=== PATIENT | female | born 1985 | race Caucasian/White ===

== ENCOUNTER 2021-10-22 05:11 | Inpatient (IN) | payer BC ==
[2021-10-22] MEDS ORDERED: Butorphanol 1 MG/ML SDV IVPUSH PRN (05:29)
[2021-10-22] MEDS ORDERED: Methylergonovine 0.2 MG/1 ML Amp IM PRN (05:29)
[2021-10-22] MEDS ORDERED: Sodium Chloride 0.9% 2.5 ML Syringe FLUSH PRN (05:29)
[2021-10-22] MEDS ORDERED: Lidocaine 1% 50 ML MDV INJECT PRN (05:29)
[2021-10-22] MEDS ORDERED: Sodium Chloride 0.9% 20 ML SDV IV PRN (05:29)
[2021-10-22] MEDS ORDERED: Misoprostol 200 MCG Tab PO PRN (05:29)
[2021-10-22] MEDS ORDERED: Citric Acid/Sodium Citrate Solution 30 ML Cup PO ONE (05:29)
[2021-10-22] MEDS ORDERED: Water For Irrigation,Sterile 1,000 ML Container IRR PRN (05:29)
[2021-10-22] MEDS ORDERED: Tranexamic Acid 1,000 MG in Sodium Chloride 0.9% 100 ML IV PRN (05:29)
[2021-10-22] MEDS ORDERED: Carboprost Tromethamine 250 MCG/1 ML Amp IM PRN (05:29)
[2021-10-22] MEDS ORDERED: Sodium Chloride 0.9% 10 ML Syringe FLUSH PRN (05:29)
[2021-10-22] MEDS ORDERED: Nalbuphine 10 MG/1 ML Vial IVPUSH PRN (05:29)
[2021-10-22] MEDS ORDERED: Oxytocin/0.9 % Sodium Chloride 30 UNIT/500 ML BAG IV SCH (05:30)
[2021-10-22] MEDS ORDERED: Lactated Ringers 1,000 ML IV SCH ×2 (05:30→10:00)
[2021-10-22] MEDS ORDERED: ceFAZolin 2 GM in Premix Bag 1 BAG IV ONE (06:00)
[2021-10-22] MEDS: Lactated Ringers 1,000 ML IV SCH ×2 (06:06→07:28)
[2021-10-22] MEDS ORDERED: Glycopyrrolate 0.2 MG/ML SDV ONE (07:17)
[2021-10-22] MEDS ORDERED: ePHEDrine 50 MG/ML SDV ONE (07:17)
[2021-10-22] MEDS ORDERED: Octyl 2-Cyanoacrylate 1 Tube ONE (07:41)
--- NOTE | 2021-10-22 07:45 | PCM.PREANE ---
Preanesthetic Assessment - Procedure Proposed Procedure: Spinal for C Section - Anesthesia/Transfusion/Family Hx Anesthesia History: Prior Anesthesia Without Reaction Family History of Anesthesia Reaction: Other (see below) (Emergence Delirium) Transfusion History: No Prior Transfusion(s) - Review of Systems General: No Symptoms Pulmonary: No Symptoms, Other (Seasonal Allergies) Cardiovascular: No Symptoms Gastrointestinal: No Symptoms, Other (GERD) Neurological: No Symptoms Other: Reports: None - Physical Assessment NPO Status Date: 10/21/21 NPO Status Time: 00:00 Height: 1.5 m Weight: 68.946 kg ASA Class: 2 Mental Status: Alert & Oriented x3 Airway Class: Mallampati = 2 Dentition: Reports: Normal Dentition Thyro-Mental Finger Breadths: 3 Mouth Opening Finger Breadths: 3 ROM/Head Extension: Full Lungs: Clear to Auscultation, Normal Respiratory Effort Cardiovascular: Regular Rate, Regular Rhythm - Lab Values: Laboratory Last Values WBC 9.62 K/uL (4.0-11.0) 10/22/21 05:58 RBC 3.98 M/uL (4.30-5.90) L 10/22/21 05:58 Hgb 11.2 g/dL (12.0-16.0) L 10/22/21 05:58 Hct 33.9 % (36.0-46.0) L 10/22/21 05:58 MCV 85.2 fL (80.0-98.0) 10/22/21 05:58 MCH 28.1 pg (27.0-32.0) 10/22/21 05:58 MCHC 33.0 g/dL (31.0-37.0) 10/22/21 05:58 RDW Std Deviation 44.6 fl (28.0-62.0) 10/22/21 05:58 RDW Coeff of Moshe 15 % (11.0-15.0) 10/22/21 05:58 Plt Count 311 K/uL (150-400) 10/22/21 05:58 MPV 9.10 fL (7.40-12.00) 10/22/21 05:58 Nucleated RBC % 0.0 /100WBC 10/22/21 05:58 Nucleated RBCs # 0 K/uL 10/22/21 05:58 - Allergies Allergies/Adverse Reactions: Allergies Allergy/AdvReac Type Severity Reaction Status Date / Time droperidol [From Inapsine] Allergy Itching Verified 10/22/21 06:22 - Blood Blood Available: Yes Product(s) Available: PRBC - Anesthesia Plan Pre-Op Medication Ordered: None - Acknowledgements Anesthesia Type Planned: Spinal Pt an Appropriate Candidate for the Planned Anesthesia: Yes Alternatives and Risks of Anesthesia Discussed w Pt/Guardian: Yes Pt/Guardian Understands and Agrees with Anesthesia Plan: Yes PreAnesthesia Questionnaire HEENT History: Reports: Other (See Below) Other HEENT History: wears glasses/contacts Cardiovascular History: Reports: None Respiratory History: Reports: Other (See Below) Other Respiratory History: hx childhood asthma Gastrointestinal History: Reports: Other (See Below) Other Gastrointestinal History: occasional heartburn with Genitourinary History: Reports: None 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: , Spontaneous Musculoskeletal History: Reports: None Neurological History: Reports: Migraines Psychiatric History: Reports: None Endocrine/Metabolic History: Reports: None Hematologic History: Reports: None Immunologic History: Reports: None Oncologic (Cancer) History: Reports: None Dermatologic History: Reports: None - Infectious Disease History Infectious Disease History: Reports: Chicken Pox - Past Surgical History Head Surgeries/Procedures: Reports: None HEENT Surgical History: Reports: Tonsillectomy, Other (See Below) Other HEENT Surgeries/Procedures: lymph node removed from neck Cardiovascular Surgical History: Reports: None Respiratory Surgical History: Reports: None GI Surgical History: Reports: None Female Surgical History: Reports: Section Endocrine Surgical History: Reports: Other (See Below) Other Endocrine Surgeries/Procedures: lymph node removed from neck Neurological Surgical History: Reports: None Musculoskeletal Surgical History: Reports: None Oncologic Surgical History: Reports: None Dermatological Surgical History: Reports: None - SUBSTANCE USE Tobacco Use Status *Q: Never Tobacco User Recreational Drug Use History: No - HOME MEDS Home Medications: Home Meds Ferrous Sulfate [Iron] 65 mg PO DAILY 10/19/21 [History] - CURRENT (IN HOUSE) MEDS Current Meds: Current Medications Butorphanol Tartrate (Butorphanol 1 Mg/Ml Sdv) 1 mg IVPUSH Q1H PRN PRN Reason: Pain (severe 7-10) Carboprost Tromethamine (Carboprost Tromethamine 250 Mcg/1 Ml Amp) 250 mcg IM ASDIRECTED PRN PRN Reason: Post Hemorrhage Oxytocin/Sodium Chloride (Oxytocin 30 Unit In Ns 0.9% 500 Ml Premix) 30 unit in 500 mls @ 999 mls/hr IV TITRATE [facility] Tranexamic Acid 1,000 mg/ (Sodium Chloride) 110 mls @ 660 mls/hr IV ONETIME PRN PRN Reason: Bleeding Lactated Ringer's (Ringers, Lactated) 1,000 mls @ 500 mls/hr IV BOLUS [facility] Last Admin: 10/22/21 07:28 Dose: 500 mls/hr Documented by: Lactated Ringer's (Ringers, Lactated) 1,000 mls @ 150 mls/hr IV ASDIRECTED [facility] Lidocaine HCl (Lidocaine 1% 50 Ml Mdv) 50 ml INJECT ONETIME PRN PRN Reason: Laceration repair Methylergonovine Maleate (Methylergonovine 0.2 Mg/1 Ml Amp) 0.2 mg IM ASDIRECTED PRN PRN Reason: Post Hemorrhage Misoprostol (Misoprostol 200 Mcg Tab) 200 mcg PO ONETIME PRN PRN Reason: Post Hemorrhage Nalbuphine HCl (Nalbuphine 10 Mg/1 Ml Vial) 10 mg IVPUSH Q1H PRN PRN Reason: Pain (severe 7-10) Sodium Chloride (Sodium Chloride 0.9% 10 Ml Syringe) 10 ml FLUSH ASDIRECTED PRN PRN Reason: Keep Vein Open Sodium Chloride (Sodium Chloride 0.9% 2.5 Ml Syringe) 2.5 ml FLUSH ASDIRECTED PRN PRN Reason: Keep Vein Open Sodium Chloride (Sodium Chloride 0.9% 20 Ml Sdv) 10 ml IV ASDIRECTED PRN PRN Reason: IV Use Sterile Water (Water For Irrigation,Sterile 1,000 Ml Container) 1,000 ml IRR ASDIRECTED PRN PRN Reason: delivery Discontinued Medications Citric Acid/Sodium Citrate (Citric Acid/Sodium Citrate Solution 30 Ml Cup) 30 ml PO ONETIME ONE Stop: 10/22/21 05:30 Ephedrine Sulfate (Ephedrine 50 Mg/Ml Sdv) Confirm Administered Dose 50 mg .ROUTE .STK-MED ONE Stop: 10/22/21 07:18 Glycopyrrolate (Glycopyrrolate 0.2 Mg/Ml Sdv) Confirm Administered Dose 0.4 mg .ROUTE .STK-MED ONE Stop: 10/22/21 07:18 Cefazolin Sodium/Dextrose 2 gm (/ Premix) 50 mls @ 100 mls/hr IV ONETIME ONE Stop: 10/22/21 06:29 Acetaminophen (Ofirmev 1000 Mg/100 Ml) Confirm Administered Dose 100 mls @ as d irected .ROUTE .STK-MED ONE Stop: 10/22/21 07:18
[2021-10-22] MEDS ORDERED: Famotidine 20 MG/2 ML SDV IVPUSH ONE (07:51)
[2021-10-22] MEDS ORDERED: Famotidine 20 MG/2 ML SDV ONE (07:53)
[2021-10-22] MEDS ORDERED: Morphine PF 10 MG/10 ML SDV ONE (07:59)
[2021-10-22] MEDS ORDERED: Ibuprofen 800 MG Tab PO PRN (08:10)
[2021-10-22] MEDS ORDERED: Acetaminophen 500 MG Tab PO PRN ×2 (08:10)
[2021-10-22] MEDS ORDERED: Ibuprofen 400 MG Tab PO PRN (08:10)
[2021-10-22] MEDS ORDERED: Benzocaine/Menthol 20%-0.5% Spray 78 GM Cannister TOP PRN (08:10)
[2021-10-22] MEDS ORDERED: Lanolin 100% Cream 7 GM Tube TOP PRN ×2 (08:10→09:55)
[2021-10-22] MEDS ORDERED: Witch Hazel Medicated Pads 40/Jar TOP PRN (08:10)
[2021-10-22] MEDS ORDERED: Bisacodyl 10 MG Supp RECTAL PRN ×2 (08:10→09:55)
[2021-10-22] MEDS ORDERED: oxyCODONE 5 MG Tab PO PRN (08:10)
[2021-10-22] MEDS ORDERED: Docusate Sodium 100 MG Cap PO PRN (08:10)
--- NOTE | 2021-10-22 08:10 | PCM.LDHP ---
L&D History of Present Illness - General Date of Service: 10/22/21 Admit Problem/Dx: Patient Status Order with Admit Dx/Problem 10/22/21 05:30 Patient Status [ADT] Routine Admission Diagnosis/Problem Admission Diagnosis/Problem Source of Information: Patient History Limitations: Reports: No Limitations - History of Present Illness Improves with: Reports: None Worsens with: Reports: None Associated Symptoms: Reports: N - Related Data Allergies/Adverse Reactions: Allergies Allergy/AdvReac Type Severity Reaction Status Date / Time droperidol [From Inapsine] Allergy Itching Verified 10/22/21 06:22 Home Medications: Home Meds Ferrous Sulfate [Iron] 65 mg PO DAILY 10/19/21 [History] Past Medical History HEENT History: Reports: Other (See Below) Other HEENT History: wears glasses/contacts Cardiovascular History: Reports: None Respiratory History: Reports: Other (See Below) Other Respiratory History: hx childhood asthma Gastrointestinal History: Reports: Other (See Below) Other Gastrointestinal History: occasional heartburn with Genitourinary History: Reports: None 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: , Spontaneous Musculoskeletal History: Reports: None Neurological History: Reports: Migraines Psychiatric History: Reports: None Endocrine/Metabolic History: Reports: None Hematologic History: Reports: None Immunologic History: Reports: None Oncologic (Cancer) History: Reports: None Dermatologic History: Reports: None - Infectious Disease History Infectious Disease History: Reports: Chicken Pox - Past Surgical History Head Surgeries/Procedures: Reports: None HEENT Surgical History: Reports: Tonsillectomy, Other (See Below) Other HEENT Surgeries/Procedures: lymph node removed from neck Cardiovascular Surgical History: Reports: None Respiratory Surgical History: Reports: None GI Surgical History: Reports: None Female Surgical History: Reports: Section Endocrine Surgical History: Reports: Other (See Below) Other Endocrine Surgeries/Procedures: lymph node removed from neck Neurological Surgical History: Reports: None Musculoskeletal Surgical History: Reports: None Oncologic Surgical History: Reports: None Dermatological Surgical History: Reports: None Social & Family History - Tobacco Use Tobacco Use Status *Q: Never Tobacco User - Caffeine Use Caffeine Use: Reports: Coffee, Soda Caffeine Use Comment: Occasional - Recreational Drug Use Recreational Drug Use: No Drug Use in Last 12 Months: No H&P Review of Systems - Review of Systems: Review Of Systems: See Below General: Reports: No Symptoms HEENT: Reports: No Symptoms Pulmonary: Reports: No Symptoms Cardiovascular: Reports: No Symptoms Gastrointestinal: Reports: No Symptoms Genitourinary: Reports: No Symptoms Musculoskeletal: Reports: No Symptoms Skin: Reports: No Symptoms Psychiatric: Reports: No Symptoms Neurological: Reports: No Symptoms Hematologic/Lymphatic: Reports: No Symptoms Immunologic: Reports: No Symptoms L&D Exam - Exam Exam: See Below - Vital Signs Weight: 68.946 kg - OB Specific Contraction Intensity: Mild Movement: Active Heart Tones: Present Presentation: Vertex - La Score La Score Cervix Position: Midposition La Score Consistency: Medium La Score Effacement: 31-50% La Score Dilation: Closed La Score Infant's Station: -3 La Score Total: 3 - Exam General: Alert, Oriented HEENT: PERRLA, Conjunctiva Clear, EACs Clear, EOMI, Hearing Intact, Mucosa Moist & [place], Nares Patent, Normal Nasal Septum, Posterior Pharynx Clear, TMs Clear Neck: Supple, Trachea Midline Lungs: Clear to Auscultation, Normal Respiratory Effort Cardiovascular: Regular Rate, Regular Rhythm GI/Abdominal Exam: Normal Bowel Sounds, Soft, Non-Tender, No Organomegaly, No Distention, No Abnormal Bruit, No Mass, Pelvis Stable Rectal Exam: Normal Exam, Normal Rectal Tone Genitourinary: Normal external exam, Normal bimanual exam, Normal speculum exam Back Exam: Normal Inspection, Full Range of Motion Extremities: Normal Inspection, Normal Range of Motion, Non-Tender, No Pedal Edema, Normal Capillary Refill Skin: Warm, Dry, Intact Neurological: Cranial Nerves Intact, Reflexes Equal Bilateral Psychiatric: Alert, Normal Affect, Normal Mood - Patient Data Lab Results Last 24 hrs: Laboratory Results - last 24 hr 10/22/21 Range/Units 05:58 WBC 9.62 (4.0-11.0) K/uL RBC 3.98 L (4.30-5.90) M/uL Hgb 11.2 L (12.0-16.0) g/dL Hct 33.9 L (36.0-46.0) % MCV 85.2 (80.0-98.0) fL MCH 28.1 (27.0-32.0) pg MCHC 33.0 (31.0-37.0) g/dL RDW Std Deviation 44.6 (28.0-62.0) fl RDW Coeff of Moshe 15 (11.0-15.0) % Plt Count 311 (150-400) K/uL MPV 9.10 (7.40-12.00) fL Nucleated RBC % 0.0 /100WBC Nucleated RBCs # 0 K/uL Result Diagrams: 10/22/21 05:58 Problem List Initiated/Reviewed/Updated: Yes Orders Last 24hrs: Active Orders 24 hr Category Date Time Status Patient Status [ADT] Routine ADT 10/22/21 05:30 Active Antiembolic Devices [RC] PER UNIT ROUTINE Care 10/22/21 05:31 Active Insert Urinary Catheter [OM.PC] Routine Care 10/22/21 05:30 Ordered May Shower [RC] ASDIRECTED Care 10/22/21 05:30 Active Notify Provider Vital Signs [RC] PRN Care 10/22/21 05:40 Active Notify Provider [RC] PRN Care 10/22/21 05:30 Active Up ad Gabriela [RC] ASDIRECTED Care 10/22/21 05:30 Active Urinary Catheter Assessment [RC] ASDIRECTED Care 10/22/21 05:31 Active Vital Signs [RC] PER UNIT ROUTINE Care 10/22/21 05:30 Active RPR (SYPHILIS SERO) W/ RFLX [REF] Routine Lab 10/22/21 05:58 Received TYPE AND SCREEN [BBK] Routine Lab 10/22/21 05:58 Received Butorphanol [Stadol] Med 10/22/21 05:29 Active 1 mg IVPUSH Q1H PRN Carboprost Tromethamine [Hemabate DS] Med 10/22/21 05:29 Active 250 mcg IM ASDIRECTED PRN Lactated Ringers [Ringers, Lactated] 1,000 ml Med 10/22/21 05:30 Active IV ASDIRECTED Lactated Ringers [Ringers, Lactated] 1,000 ml Med 10/22/21 05:30 Active IV BOLUS Lidocaine 1% [Xylocaine 1%] Med 10/22/21 05:29 Active 50 ml INJECT ONETIME PRN Methylergonovine [Methergine] Med 10/22/21 05:29 Active 0.2 mg IM ASDIRECTED PRN Nalbuphine [Nubain] Med 10/22/21 05:29 Active 10 mg IVPUSH Q1H PRN Oxytocin/0.9 % Sodium Chloride [Oxytocin 30 Unit in NS Med 10/22/21 05:30 Active 0.9% 500 ML Premix] 30 unit in 500 ml IV TITRATE Sodium Chloride 0.9% [Normal Saline] Med 10/22/21 05:29 Active 10 ml IV ASDIRECTED PRN Sodium Chloride 0.9% [Saline Flush] Med 10/22/21 05:29 Active 10 ml FLUSH ASDIRECTED PRN Sodium Chloride 0.9% [Saline Flush] Med 10/22/21 05:29 Active 2.5 ml FLUSH ASDIRECTED PRN Tranexamic Acid [Cyklokapron] 1,000 mg Med 10/22/21 05:29 Active Sodium Chloride 0.9% [Normal Saline] 100 ml IV ONETIME Water For Irrigation,Sterile [Sterile Water for Med 10/22/21 05:29 Active Irrigation] 1,000 ml IRR ASDIRECTED PRN miSOPROStoL [Cytotec] Med 10/22/21 05:29 Active 200 mcg PO ONETIME PRN Peripheral IV Insertion Adult [OM.PC] Routine Oth 10/22/21 05:30 Ordered Peripheral IV Insertion Adult [OM.PC] Routine Oth 10/22/21 05:30 Ordered Schedule Procedure [COMM] Per Unit Routine Oth 10/22/21 05:30 Ordered Sequential Compression Device [OM.PC] Routine Oth 10/22/21 05:30 Ordered Resuscitation Status Routine Resus Stat 10/22/21 05:29 Ordered Medication Orders Butorphanol Tartrate (Butorphanol 1 Mg/Ml Sdv) 1 mg IVPUSH Q1H PRN PRN Reason: Pain (severe 7-10) Carboprost Tromethamine (Carboprost Tromethamine 250 Mcg/1 Ml Amp) 250 mcg IM ASDIRECTED PRN PRN Reason: Post Hemorrhage Oxytocin/Sodium Chloride (Oxytocin 30 Unit In Ns 0.9% 500 Ml Premix) 30 unit in 500 mls @ 999 mls/hr IV TITRATE [facility] Tranexamic Acid 1,000 mg/ (Sodium Chloride) 110 mls @ 660 mls/hr IV ONETIME PRN PRN Reason: Bleeding Lactated Ringer's (Ringers, Lactated) 1,000 mls @ 500 mls/hr IV BOLUS [facility] Last Admin: 10/22/21 07:28 Dose: 500 mls/hr Documented by: [email or web address] Infusion: 10/22/21 07:28 Dose: 500 mls/hr Documented by: [id number] Admin: 10/22/21 06:06 Dose: 500 mls/hr Documented by: RACHEL Lactated Ringer's (Ringers, Lactated) 1,000 mls @ 150 mls/hr IV ASDIRECTED [facility] Lidocaine HCl (Lidocaine 1% 50 Ml Mdv) 50 ml INJECT ONETIME PRN PRN Reason: Laceration repair Methylergonovine Maleate (Methylergonovine 0.2 Mg/1 Ml Amp) 0.2 mg IM ASDIRECTE D PRN PRN Reason: Post Hemorrhage Misoprostol (Misoprostol 200 Mcg Tab) 200 mcg PO ONETIME PRN PRN Reason: Post Hemorrhage Nalbuphine HCl (Nalbuphine 10 Mg/1 Ml Vial) 10 mg IVPUSH Q1H PRN PRN Reason: Pain (severe 7-10) Sodium Chloride (Sodium Chloride 0.9% 10 Ml Syringe) 10 ml FLUSH ASDIRECTED PRN PRN Reason: Keep Vein Open Sodium Chloride (Sodium Chloride 0.9% 2.5 Ml Syringe) 2.5 ml FLUSH ASDIRECTED PRN PRN Reason: Keep Vein Open Sodium Chloride (Sodium Chloride 0.9% 20 Ml Sdv) 10 ml IV ASDIRECTED PRN PRN Reason: IV Use Sterile Water (Water For Irrigation,Sterile 1,000 Ml Container) 1,000 ml IRR ASDIRECTED PRN PRN Reason: delivery Assessment/Plan Comment:: Termpregnancy admitted for elective repear c/section.
[2021-10-22] MEDS ORDERED: Oxytocin 10 Units/1 ML SDV ONE (08:54)
--- NOTE | 2021-10-22 08:55 | PCM.OPNOTE ---
- General Post-Op/Procedure Note Date of Surgery/Procedure: 10/22/21 Operative Procedure(s): repeat C/section. Pre Op Diagnosis: IUP term previous C/section. Post-Op Diagnosis: Same Anesthesia Technique: Spinal Primary Surgeon: Mohit Simpsno Channel Marketing Manager: rachana Roth EBL in mLs: 600 Complications: None Condition: Good
[2021-10-22] MEDS ORDERED: Ondansetron 4 MG/2 ML SDV ONE (09:24)
[2021-10-22] MEDS ORDERED: Dexamethasone 4 MG/ML 5 ML MDV ONE (09:24)
--- NOTE | 2021-10-22 09:49 | PCM.POSTAN ---
POST ANESTHESIA ASSESSMENT - MENTAL STATUS Mental Status: Alert, Oriented - RESPIRATORY Respiratory Status: Respiratory Rate WNL, Airway Patent, O2 Saturation Stable - CARDIOVASCULAR CV Status: Pulse Rate WNL, Blood Pressure Stable - GASTROINTESTINAL GI Status: No Symptoms - POST OP HYDRATION Hydration Status: Adequate & Stable
--- NOTE | 2021-10-22 09:53 | PCM48HPAN ---
Post Anesthesia Note - EVALUATION WITHIN 48HRS OF ANESTHETIC Vital Signs in Normal Range: Yes Patient Participated in Evaluation: Yes Respiratory Function Stable: Yes Airway Patent: Yes Cardiovascular Function Stable: Yes Hydration Status Stable: Yes Pain Control Satisfactory: Yes Nausea and Vomiting Control Satisfactory: Yes Mental Status Recovered: Yes - COMMENTS/OBSERVATIONS Free Text/Narrative:: Pt complains of minimal discomfort at incision and 30 mg Toradol given.
[2021-10-22] MEDS ORDERED: Ondansetron 4 MG/2 ML SDV IVPUSH PRN (09:55)
[2021-10-22] MEDS ORDERED: Acetaminophen/oxyCODONE 325-5 MG Tab PO PRN ×2 (09:55)
[2021-10-22] MEDS ORDERED: diphenhydrAMINE 50 MG/ML SDV IVPUSH PRN (09:55)
[2021-10-22] MEDS ORDERED: Oxytocin 10 Units/1 ML SDV IM PRN (09:55)
[2021-10-22] MEDS: Ketorolac 30 MG/ML SDV IVPUSH SCH ×3 (10:00→22:57)
[2021-10-23] MEDS: Ketorolac 30 MG/ML SDV IVPUSH SCH ×2 (04:48→12:47)
[2021-10-23 05:35] VITALS: BP 102/68
[2021-10-23 07:57] VITALS: PULSE 76
--- NOTE | 2021-10-23 08:26 | OR ---
SURGEON: Mohit Simpson MD DATE OF PROCEDURE: 10/22/2021 PREOPERATIVE DIAGNOSES: Intrauterine , term; previous section. POSTOPERATIVE DIAGNOSES: Intrauterine , term; previous section. OPERATION PERFORMED: Low transverse repeat section. PAINT ROLLER COVERMAKER: Katty Roth. ANESTHESIA: Spinal, Srinath Su CRNA. ESTIMATED BLOOD LOSS: 600 mL. COMPLICATIONS: None. FINDING: Female fetus. score reported to be 8 and 9 and weight 7 pounds 1 ounce. Normal uterus, tubes, and ovaries. INDICATION FOR SURGERY: The patient is 36. She is followed in our clinic primarily by me. She is term. She had a previous section. GBS is negative. No care, issue. The patient admitted for elective repeat section. PROCEDURE IN DETAIL: The patient was brought to the OR, properly identified, and after adequate level of spinal anesthesia with a Wells catheter, the patient was prepped and draped in sterile fashion as usual. Low transverse Pfannenstiel skin incision through the old scar was done. Katarzyna fascia and rectus fascia were opened in direction of the incision. The 2 recti muscles were . Peritoneal cavity was entered and bladder flap was raised in the usual manner pushing the bladder away from the lower uterine segment. Low transverse uterine incision done and extended manually with hand. Fetus was in a vertex position, delivered without any problem. It was a female fetus. score reported to be 8 and 9 and weight 7 pounds 1 ounce. The placenta delivered spontaneous, complete, and intact and repair of the lower uterine segment was done with 2-0 Vicryl in a continuous interlocking in 2 layers. Reperitonealization done with 3-0 Vicryl continuous and then the peritoneal cavity evacuated completely from all blood and blood clot and closed with #1 PDS continuous. The skin closed in a subcuticular fashion with 3-0 Vicryl on a Michel needle. Estimated blood loss was 600 mL. There was no complication and the patient tolerated the procedure well, went to recovery room in stable general condition. YANIRA / BRANT /[id number]
--- NOTE | 2021-10-23 08:36 | PCM.PNPP ---
- General Info Date of Service: 10/23/21 Functional Status: Reports: Pain Controlled - Review of Systems General: Reports: No Symptoms HEENT: Reports: No Symptoms Pulmonary: Reports: No Symptoms Cardiovascular: Reports: No Symptoms Gastrointestinal: Reports: No Symptoms Genitourinary: Reports: No Symptoms Musculoskeletal: Reports: No Symptoms Skin: Reports: No Symptoms Neurological: Reports: No Symptoms Psychiatric: Reports: No Symptoms - General Info Date of Service: 10/23/21 - Patient Data Vital Signs - Most Recent: Last Vital Signs Temp 36.7 C 10/23/21 05:00 Pulse 76 10/23/21 07:00 Resp 15 10/23/21 07:00 BP 102/68 10/23/21 05:00 Pulse Ox 99 10/23/21 07:00 Weight - Most Recent: 68.946 kg I&O - Last 24 Hours: Intake & Output 10/22/21 10/23/21 10/23/21 22:59 06:59 14:59 Intake Total 1000 Output Total 2000 2500 Balance -1000 -2500 Lab Results - Last 24 Hours: Laboratory Results - last 24 hr 10/22/21 10/22/21 10/23/21 Range/Units 05:58 10:04 05:24 Hgb 9.8 L (12.0-16.0) g/dL Hct 30.3 L (36.0-46.0) % Antibody Screen NEGATIVE Screen NEGATIVE (NEGATIVE) RhIG Candidate? YES Rhogam Indicated YES, BABY RH POS H Med Orders - Current: Current Medications Bisacodyl (Bisacodyl 10 Mg Supp) 10 mg RECTAL ONETIME PRN PRN Reason: Constipation Butorphanol Tartrate (Butorphanol 1 Mg/Ml Sdv) 1 mg IVPUSH Q1H PRN PRN Reason: Pain (severe 7-10) Carboprost Tromethamine (Carboprost Tromethamine 250 Mcg/1 Ml Amp) 250 mcg IM ASDIRECTED PRN PRN Reason: Post Hemorrhage Diphenhydramine HCl (Diphenhydramine 50 Mg/Ml Sdv) 25 mg IVPUSH Q6H PRN PRN Reason: Itching or Nausea Docusate Sodium (Docusate Sodium 100 Mg Cap) 100 mg PO BID URMILA Emollient Ointment (Lanolin 100% Cream 7 Gm Tube) 0 gm TOP ASDIRECTED PRN PRN Reason: Sore Nipples Oxytocin/Sodium Chloride (Oxytocin 30 Unit In Ns 0.9% 500 Ml Premix) 30 unit in 500 mls @ 999 mls/hr IV TITRATE [facility] Tranexamic Acid 1,000 mg/ (Sodium Chloride) 110 mls @ 660 mls/hr IV ONETIME PRN PRN Reason: Bleeding Lactated Ringer's (Ringers, Lactated) 1,000 mls @ 500 mls/hr IV BOLUS [facility] Last Admin: 10/22/21 07:28 Dose: 500 mls/hr Documented by: Lactated Ringer's (Ringers, Lactated) 1,000 mls @ 150 mls/hr IV ASDIRECTED [facility] Lactated Ringer's (Ringers, Lactated) 1,000 mls @ 125 mls/hr IV ASDIRECTED [facility] Ibuprofen (Ibuprofen 800 Mg Tab) 800 mg PO Q8H PRN PRN Reason: Cramping Ketorolac Tromethamine (Ketorolac 30 Mg/Ml Sdv) 30 mg IVPUSH Q6H [facility] Stop: 10/23/21 10:01 Last Admin: 10/23/21 04:48 Dose: 30 mg Documented by: Lidocaine HCl (Lidocaine 1% 50 Ml Mdv) 50 ml INJECT ONETIME PRN PRN Reason: Laceration repair Methylergonovine Maleate (Methylergonovine 0.2 Mg/1 Ml Amp) 0.2 mg IM ASDIRECTED PRN PRN Reason: Post Hemorrhage Misoprostol (Misoprostol 200 Mcg Tab) 200 mcg PO ONETIME PRN PRN Reason: Post Hemorrhage Nalbuphine HCl (Nalbuphine 10 Mg/1 Ml Vial) 10 mg IVPUSH Q1H PRN PRN Reason: Pain (severe 7-10) Ondansetron HCl (Ondansetron 4 Mg/2 Ml Sdv) 4 mg IVPUSH Q4H PRN PRN Reason: Nausea/Vomiting Oxycodone/Acetaminophen (Acetaminophen/Oxycodone 325-5 Mg Tab) 1 tab PO Q4H PRN PRN Reason: Pain (severe 7-10) Oxycodone/Acetaminophen (Acetaminophen/Oxycodone 325-5 Mg Tab) 2 tab PO Q4H PRN PRN Reason: Pain (severe 7-10) Oxytocin (Oxytocin 10 Units/1 Ml Sdv) 10 unit IM ASDIRECTED PRN PRN Reason: Excessive Vaginal Bleeding Sodium Chloride (Sodium Chloride 0.9% 10 Ml Syringe) 10 ml FLUSH ASDIRECTED PRN PRN Reason: Keep Vein Open Sodium Chloride (Sodium Chloride 0.9% 2.5 Ml Syringe) 2.5 ml FLUSH ASDIRECTED PRN PRN Reason: Keep Vein Open Sodium Chloride (Sodium Chloride 0.9% 20 Ml Sdv) 10 ml IV ASDIRECTED PRN PRN Reason: IV Use Sterile Water (Water For Irrigation,Sterile 1,000 Ml Container) 1,000 ml IRR ASDIRECTED PRN PRN Reason: delivery Discontinued Medications Citric Acid/Sodium Citrate (Citric Acid/Sodium Citrate Solution 30 Ml Cup) 30 ml PO ONETIME ONE Stop: 10/22/21 05:30 Last Admin: 10/22/21 10:01 Dose: Not Given Documented by: Dexamethasone (Dexamethasone 4 Mg/Ml 5 Ml Mdv) Confirm Administered Dose 20 mg .ROUTE .STK-MED ONE Stop: 10/22/21 09:25 Ephedrine Sulfate (Ephedrine 50 Mg/Ml Sdv) Confirm Administered Dose 50 mg .RO JANETTE .STK-MED ONE Stop: 10/22/21 07:18 Famotidine (Famotidine 20 Mg/2 Ml Sdv) 20 mg IVPUSH ONETIME ONE Stop: 10/22/21 07:52 Last Admin: 10/22/21 10:02 Dose: Not Given Documented by: Famotidine (Famotidine 20 Mg/2 Ml Sdv) Confirm Administered Dose 20 mg .ROUTE .STK-MED ONE Stop: 10/22/21 07:54 Last Admin: 10/22/21 10:02 Dose: Not Given Documented by: Glycopyrrolate (Glycopyrrolate 0.2 Mg/Ml Sdv) Confirm Administered Dose 0.4 mg .ROUTE .STK-MED ONE Stop: 10/22/21 07:18 Cefazolin Sodium/Dextrose 2 gm (/ Premix) 50 mls @ 100 mls/hr IV ONETIME ONE Stop: 10/22/21 06:29 Last Admin: 10/22/21 10:01 Dose: Not Given Documented by: Acetaminophen (Ofirmev 1000 Mg/100 Ml) Confirm Administered Dose 100 mls @ as directed .ROUTE .STK-MED ONE Stop: 10/22/21 07:18 Cefazolin Sodium/Dextrose (Ancef) Confirm Administered Dose 50 mls @ as directed .ROUTE .STK-MED ONE Stop: 10/22/21 09:37 Miscellaneous Medication (Phenylephrine Hcl In 0.9% Nacl 1 Mg/10 Ml Syringe) Confirm Administered Dose 1 mg .ROUTE .STK-MED ONE Stop: 10/22/21 08:55 Morphine Sulfate (Morphine Pf 10 Mg/10 Ml Sdv) Confirm Administered Dose 10 mg .ROUTE .STK-MED ONE Stop: 10/22/21 08:00 Octyl Cyanoacrylate (Octyl 2-Cyanoacrylate 1 Tube) Confirm Administered Dose 1 applic .ROUTE .STK-MED ONE Stop: 10/22/21 07:42 Last Admin: 10/22/21 10:01 Dose: Not Given Documented by: Ondansetron HCl (Ondansetron 4 Mg/2 Ml Sdv) Confirm Administered Dose 4 mg .ROUTE .STK-MED ONE Stop: 10/22/21 09:25 Oxytocin (Oxytocin 10 Units/1 Ml Sdv) Confirm Administered Dose 60 unit .ROUTE .STK-MED ONE Stop: 10/22/21 08:55 - Interaction Disposition, : [place] in Room with Family Infant Interaction: Holding Infant Feeding: Attempted ; Nursed Fair/Poor Support Person: - Recovery Exam Fundal Tone: Firm Fundal Level: 2 Fingerbreadths Below Umbilicus Fundal Placement: Midline Lochia Amount: Scant Lochia Color: Rubra/Red Perineum Description: Intact, Minimal Bruising/Swelling Episiotomy/Laceration: None Bladder Status: Nonpalpable, Indwelling Catheter in Place Urinary Elimination: Other (see below) Other Urinary Elimination, : Due to void. - Exam General: Alert, Oriented HEENT: Pupils Equal Neck: Supple Lungs: Clear to Auscultation, Normal Respiratory Effort Cardiovascular: Regular Rate, Regular Rhythm GI/Abdominal Exam: Normal Bowel Sounds, Soft, Non-Tender, No Organomegaly, No Distention, No Abnormal Bruit, No Mass, Pelvis Stable Extremities: Normal Inspection, Normal Range of Motion, Non-Tender, No Pedal Edema, Normal Capillary Refill Skin: Warm, Dry, Intact Wound/Incisions: Healing Well Neurological: No New Focal Deficit Psy/Mental Status: Alert, Normal Affect, Normal Mood - Problem List Review Problem List Initiated/Reviewed/Updated: Yes - My Orders Last 24 Hours: My Active Orders 10/22/21 08:11 Patient Status [ADT] Routine 10/22/21 09:55 Ambulate [RC] PER UNIT ROUTINE Communication Order [RC] PER UNIT ROUTINE Communication Order [RC] Per Unit Routine RT Incentive Spirometry [RC] Q2HWA Acetaminophen/oxyCODONE [Percocet 325-5 MG] 1 tab PO Q4H PRN Acetaminophen/oxyCODONE [Percocet 325-5 MG] 2 tab PO Q4H PRN Lanolin [Lansinoh HPA] See Dose Instructions TOP ASDIRECTED PRN Ondansetron [Zofran] 4 mg IVPUSH Q4H PRN Oxytocin [Pitocin] 10 unit IM ASDIRECTED PRN bisacodyL [Dulcolax] 10 mg RECTAL ONETIME PRN diphenhydrAMINE [Benadryl] 25 mg IVPUSH Q6H PRN Assess Lochia [WOMSER] Per Unit Routine Assess Uterine Involution [WOMSER] Per Unit Routine Breast Pump [WOMSER] Per Unit Routine Peripheral IV Discontinue [OM.PC] Routine 10/22/21 09:56 Notify Provider Intake and Out [RC] ASDIRECTED Notify Provider Vital Signs [RC] ASDIRECTED 10/22/21 10:00 Ketorolac [Toradol] 30 mg IVPUSH Q6H Lactated Ringers [Ringers, Lactated] 1,000 ml IV ASDIRECTED 10/22/21 10:04 SCREEN [BBK] Routine RH IMMUNE GLOBULIN [BBK] Routine RHOGAM, [RHIG WORKUP, ] [BBK] Routine 10/22/21 Lunch Regular Diet [DIET] 10/23/21 09:00 Docusate Sodium [Colace] 100 mg PO BID 10/23/21 16:00 Ibuprofen [Motrin] 800 mg PO Q8H PRN - Assessment Assessment:: Status post section postoperative day #1 patient is doing well. Ambulatory voiding on regular diet minimum vaginal bleeding incision is clean dry the patient expressed her desire to go home she is doing well we will send her home today - Plan Plan:: Termpregnancy admitted for elective repear c/section.
[2021-10-23] MEDS ORDERED: Docusate Sodium 100 MG Cap PO SCH (09:00)
[2021-10-23] MEDS ORDERED: Ibuprofen 800 MG Tab PO PRN (16:00)
== END 2021-10-23 14:13 | disposition home or self-care (01) | DRG 540 ==
LOC: MW.OB 05:11
PROVIDERS: ADMIT Obstetrics & Gynecology; ATTEND Obstetrics & Gynecology
PROC: 10D00Z1 Extraction of Products of Conception, Low, Open Approach (ICD-10-PCS; principal; 2021-10-22)
PROC: 3E0234Z Introduction of Serum, Toxoid and Vaccine into Muscle, Percutaneous Approach (ICD-10-PCS; 2021-10-23)
DX: O34.211 Maternal care for low transverse scar from previous cesarean delivery (principal); Z37.0 Single live birth; Z3A.39 39 weeks gestation of pregnancy; Z23 Encounter for immunization; O26.893 Other specified pregnancy related conditions, third trimester; Z67.11 Type A blood, Rh negative
CPT/HCPCS: 01961; 36415; 59025; 85014; 85018; 85027; 85460; 86592; 86850; 86900; 86901; A9270-GY; J0131; J0690; J1100; J1885; J2270; J2370; J2405; J2590; J2790; J3490; J7120

== ENCOUNTER 2023-02-26 08:32 | Inpatient (IN) | payer SELFPAY ==
[2023-02-26] MEDS ORDERED: fentaNYL 100 MCG/2 ML SDV IVPUSH PRN ×2 (09:12)
[2023-02-26] MEDS ORDERED: Ondansetron 4 MG/2 ML SDV IVPUSH PRN ×3 (09:12→10:28)
[2023-02-26] MEDS ORDERED: diphenhydrAMINE 50 MG/ML SDV IVPUSH PRN ×2 (09:12→10:28)
[2023-02-26] MEDS ORDERED: droPERidol 5 MG/2 ML SDV IVPUSH PRN (09:12)
[2023-02-26] MEDS ORDERED: ePHEDrine 50 MG/ML SDV IVPUSH PRN (09:12)
[2023-02-26] MEDS ORDERED: Naloxone 0.4 MG/ML SDV IVPUSH PRN (09:12)
[2023-02-26] MEDS ORDERED: Morphine 2 MG/ML SYRINGE IVPUSH PRN (09:12)
[2023-02-26] MEDS ORDERED: Albuterol 0.083% 2.5 MG/3 ML Neb Soln NEB PRN (09:12)
[2023-02-26] MEDS ORDERED: Metoclopramide 10 MG/2 ML SDV IVPUSH PRN (09:12)
[2023-02-26] MEDS ORDERED: HYDROmorphone 2 MG/ML Syringe IVPUSH PRN (09:12)
[2023-02-26] MEDS ORDERED: Acetaminophen/oxyCODONE 325-5 MG Tab PO PRN ×3 (09:12→10:28)
[2023-02-26] MEDS ORDERED: Sodium Chloride 0.9% 20 ML SDV IV PRN (09:14)
[2023-02-26] MEDS ORDERED: Citric Acid/Sodium Citrate Solution 30 ML Cup PO ONE (09:14)
[2023-02-26] MEDS ORDERED: Sodium Chloride 0.9% 2.5 ML Syringe FLUSH PRN (09:14)
[2023-02-26] MEDS ORDERED: Sodium Chloride 0.9% 10 ML Syringe FLUSH PRN (09:14)
[2023-02-26] MEDS ORDERED: Lactated Ringers 1,000 ML IV SCH ×2 (09:15→10:30)
[2023-02-26] MEDS ORDERED: Oxytocin/0.9 % Sodium Chloride 30 UNIT/500 ML BAG IV SCH ×2 (09:15→10:30)
[2023-02-26] MEDS ORDERED: Ketorolac 30 MG/ML SDV ONE (09:47)
[2023-02-26] MEDS ORDERED: Dexamethasone 4 MG/ML 5 ML MDV ONE ×2 (09:47→10:17)
[2023-02-26] MEDS ORDERED: Phenylephrine 1% 10 MG/ML SDV ONE (09:47)
[2023-02-26] MEDS ORDERED: Ondansetron 4 MG/2 ML SDV ONE (09:47)
[2023-02-26] MEDS ORDERED: fentaNYL 100 MCG/2 ML SDV ONE (09:47)
[2023-02-26] MEDS ORDERED: Morphine PF 10 MG/10 ML SDV ONE (09:47)
[2023-02-26] MEDS ORDERED: Oxytocin 10 Units/1 ML SDV ONE (09:47)
[2023-02-26] MEDS ORDERED: Lidocaine 2% 5 ML SDV ONE (09:47)
[2023-02-26] MEDS ORDERED: ceFAZolin 1 GM Vial ONE (09:47)
[2023-02-26] MEDS ORDERED: Ropivacaine 0.5% 5 MG/ML 30 ML SDV ONE (09:48)
[2023-02-26] MEDS ORDERED: Lanolin 100% Cream 7 GM Tube TOP PRN (10:28)
[2023-02-26] MEDS ORDERED: Methylergonovine 0.2 MG/1 ML Amp IM PRN (10:28)
[2023-02-26] MEDS ORDERED: Tranexamic Acid 1,000 MG in Sodium Chloride 0.9% 100 ML IV PRN (10:28)
[2023-02-26] MEDS ORDERED: Oxytocin 10 Units/1 ML SDV IM PRN (10:28)
[2023-02-26] MEDS ORDERED: Bisacodyl 10 MG Supp RECTAL PRN (10:28)
[2023-02-26] MEDS ORDERED: Misoprostol 200 MCG Tab RECTAL PRN (10:28)
[2023-02-26] MEDS: Ketorolac 30 MG/ML SDV IVPUSH SCH ×2 (16:11→22:23)
[2023-02-26] MEDS ORDERED: Ketorolac 30 MG/ML SDV IVPUSH SCH (18:00)
[2023-02-26] MEDS: Acetaminophen 1,000 MG in Premix Bag 1 BAG IV SCH ×2 (19:21→20:42)
[2023-02-26] MEDS: Docusate Sodium 100 MG Cap PO SCH (19:21)
[2023-02-27] MEDS: Acetaminophen 1,000 MG in Premix Bag 1 BAG IV SCH ×3 (01:01→13:30)
[2023-02-27] MEDS: Docusate Sodium 100 MG Cap PO SCH ×3 (03:51→21:34)
[2023-02-27] MEDS: Ketorolac 30 MG/ML SDV IVPUSH SCH ×3 (04:11→10:30)
[2023-02-27] MEDS: Ibuprofen 800 MG Tab PO PRN (17:13)
[2023-02-28] MEDS: Ibuprofen 800 MG Tab PO PRN ×2 (02:28→11:11)
[2023-02-28 08:12] VITALS: BP 126/84; PULSE 123
== END 2023-02-28 12:35 | disposition home or self-care (01) | DRG 786 ==
LOC: MW.OBCHECK 08:32 → MW.OB 08:33 → OBSVTOIN 10:46 → MW.OB 10:46 → MW.OBCHECK 11:27 → MW.OB 15:44
PROVIDERS: ADMIT Obstetrics & Gynecology Obstetrics; ATTEND Obstetrics & Gynecology Obstetrics
PROC: 10D00Z1 Extraction of Products of Conception, Low, Open Approach (ICD-10-PCS; principal; 2023-02-26)
DX: O42.013 Preterm premature rupture of membranes, onset of labor within 24 hours of rupture, third trimester (principal); O60.14X0 Preterm labor third trimester with preterm delivery third trimester, not applicable or unspecified; Z37.0 Single live birth; O34.211 Maternal care for low transverse scar from previous cesarean delivery; O26.893 Other specified pregnancy related conditions, third trimester; Z67.41 Type O blood, Rh negative; Z3A.36 36 weeks gestation of pregnancy
CPT/HCPCS: 36415; 59025; 84112; 85014; 85018; 85027; 86592; 86850; 86900; 86901; A9270-GY; J0131; J0690; J1100; J1885; J2274; J2370; J2405; J2590; J2795; J3010; J3490; J7120

== ENCOUNTER 2023-05-05 08:22 | Day surgery (SDC) | payer SELFPAY ==
[~2023-05-05 08:22] MED LIST: Lactated Ringers 1,000 ML IV SCH
[2023-05-05] MEDS ORDERED: propofoL 50 ML ONE (08:38)
[2023-05-05] MEDS ORDERED: Dexmedetomidine 200 MCG/2 ML SDV ONE (08:38)
[2023-05-05] MEDS ORDERED: fentaNYL 100 MCG/2 ML SDV ONE (08:38)
[2023-05-05] MEDS ORDERED: Ondansetron 4 MG/2 ML SDV IVPUSH PRN (09:02)
[2023-05-05] MEDS ORDERED: fentaNYL 50 MCG/ML SDV IVPUSH PRN (09:02)
[2023-05-05] MEDS ORDERED: Metoclopramide 10 MG/2 ML SDV IVPUSH PRN (09:02)
[2023-05-05] MEDS ORDERED: Albuterol 0.083% 2.5 MG/3 ML Neb Soln NEB PRN (09:02)
[2023-05-05] MEDS ORDERED: Naloxone 0.4 MG/ML SDV IVPUSH PRN (09:02)
[2023-05-05] MEDS ORDERED: Morphine 2 MG/ML SYRINGE IVPUSH PRN (09:02)
[2023-05-05] MEDS ORDERED: HYDROmorphone 1 MG/ML Syringe IVPUSH PRN (09:02)
[2023-05-05] MEDS ORDERED: Bupivacaine 25%/EPINEPHrine/PF 30 ML ONE (10:28)
[2023-05-05] MEDS ORDERED: Ropivacaine 0.5% 5 MG/ML 30 ML SDV ONE (10:28)
[2023-05-05] MEDS ORDERED: Dexamethasone 4 MG/ML 5 ML MDV ONE (10:48)
[2023-05-05] MEDS ORDERED: Ondansetron 4 MG/2 ML SDV ONE (10:48)
[2023-05-05] MEDS ORDERED: Propofol 200 MG/20 ML SDV ONE (10:57)
[2023-05-05] MEDS ORDERED: Ketorolac 30 MG/ML SDV ONE (11:16)
[2023-05-05 12:47] VITALS: BP 122/65; PULSE 69
== END 2023-05-05 12:38 | disposition home or self-care (01) ==
LOC: MW.SDS 08:22
PROVIDERS: ATTEND Obstetrics & Gynecology
DX: R10.9 Unspecified abdominal pain (principal); J45.909 Unspecified asthma, uncomplicated; G43.909 Migraine, unspecified, not intractable, without status migrainosus; Z88.8 Allergy status to other drugs, medicaments and biological substances; Z79.899 Other long term (current) drug therapy; Z98.890 Other specified postprocedural states
CPT/HCPCS: 13101; 81025; J1100; J1170; J1885; J2405; J2704; J2795; J3010; J7120; 00400; 64488; J3490

== ENCOUNTER 2023-11-20 15:41 | Emergency (ER) | payer SELFPAY ==
[2023-11-20] MEDS ORDERED: Metoclopramide 10 MG/2 ML SDV IVPUSH ONE (16:11)
[2023-11-20] MEDS ORDERED: Sodium Chloride 0.9% 1,000 ML IV ONE (16:11)
[2023-11-20] MEDS ORDERED: Dexamethasone 4 MG/ML SDV IVPUSH ONE (16:12)
[2023-11-20 17:56] VITALS: BP 108/67; PULSE 85
== END 2023-11-20 17:56 | disposition home or self-care (01) ==
LOC: MW.ED 15:41
DX: R51.9 Headache, unspecified (principal); H53.9 Unspecified visual disturbance; Z88.8 Allergy status to other drugs, medicaments and biological substances
CPT/HCPCS: 96361; 96374; 96375; 99283; J1100; J2765; J7030; 99284